=== PATIENT | male | born 1940 | race Caucasian/White ===

== ENCOUNTER 2016-10-19 14:05 | Observation (INO) | payer OTHER ==
[2016-10-19 14:18] LABS: % IMMATURE GRANULYOCYTES 0.9 % (0.0-1.1); ABSOLUTE IMMATURE GRANULOCYTES 0.09 10^3/uL (0.00-0.10); ADD DIFF? NO; ADD MORPH? NO; ADD SCAN? NO; ATYPICAL LYMPHOCYTE FLAG 0 (0-99); FRAGMENT RBC FLAG 0 (0-99); HEMATOCRIT 44.5 % (40.0-51.0); HEMOGLOBIN 15.3 g/dL (13.7-17.5); LEFT SHIFT FLG 0 (0-99); LIPEMIA HEMOLYSIS FLAG 90 (0-99); MEAN CELL HEMOGLOBIN 30.5 pg (27.9-34.1); MEAN CELL HEMOGLOBIN CONCENTR. 34.4 g/dL (32.4-36.7); MEAN CELL VOLUME 88.6 fL (81.5-99.8); MEAN PLATELET VOLUME 9.8 fL (8.7-11.7); PLATELET CLUMPS FLAG 10 (0-99); PLATELET COUNT 295 10^3/uL (150-400); RED BLOOD CELL COUNT 5.02 10^6/uL (4.40-6.38); RED CELL DISTRIBUTION WIDTH 13.1 % (11.5-15.2)
--- NOTE | 2016-10-19 14:19 | EDPHY ---
H & P HPI/ROS: HPI CHIEF COMPLAINT: Possible stroke alert versus seizure. HISTORY OF PRESENT ILLNESS: This patient is a 76-year-old male, significant past medical history for hypertension, history and review of systems somewhat limited due to clinical scenario. Patient presents emergency room as possible stroke alert by EMS. Per EMS they were called to a local restaurant in [facility] where the patient may have been witnessed to have a seizure. Unclear. Upon arrival and evaluation by EMS he was initially unresponsive or minimally responsive to pain. This has since improved in EMS transport. He had a negative stroke scale for EMS in route. Upon arrival to the emergency room the patient follows commands and answers questions. No focal neuro deficit appreciated on exam. However noted to be very hypertensive. When asked the year he repeats over and over again a religion prayer. There is no family here at this time to provide additional information specifically the daughter who is an EMT told EMS that she may witness the seizure. Unclear exactly the events at this time. Past Medical History: Hypertension, hyperlipidemia Past Surgical History: Unknown at this time Social History: Unknown at this time Family History: Noncontributory ROS REVIEW OF SYSTEMS: A comprehensive 10 point review of systems is otherwise negative aside from elements mentioned in the history of present illness. Exam Constitutional alert, follows commands triage nursing summary reviewed, vital signs reviewed, awake/alert. Eyes normal conjunctivae and sclera, EOMI, PERRLA. HENT normal inspection, atraumatic, moist mucus membranes, no epistaxis, neck supple/ no meningismus, no raccoon eyes. Respiratory clear to auscultation bilaterally, normal breath sounds, no respiratory distress, no wheezing. Cardiovascular rate normal, regular rhythm, no murmur, no edema, distal pulses normal. Gastrointestinal soft, non-tender, no rebound, no guarding, normal bowel sounds, no distension, no pulsatile mass. Genitourinary no CVA tenderness. Musculoskeletal no midline vertebral tenderness, full range of motion, no calf swelling, no tenderness of extremities, no meningismus, good pulses, neurovascularly intact. Neurologic awake, alert and oriented x 3, AAOx3, moves all 4 extremities equally, motor intact, sensory intact, CN II-XII intact, normal cerebellar, normal vision, normal speech. No focal neuro deficit on exam. Psychiatric normal mood/affect. Heme/Lymph/Immune no lymphadenopathy. Differential Diagnosis: Includes but is not limited to in a particular order stroke, head bleed, seizure, ACS, electrolyte disturbance, hypertensive urgency , hypertensive emergency, PRESS Medical Decision Making: Will proceed with a stroke alert as the patient had change in mental status prior to arrival. After patient returned from CT will re-evaluate him. 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 The results of the study are negative for anything acute specifically no bleed or stroke. The study was read by Dr. Adan I viewed the images myself on the PACS system EKG interpretation by me on record in [email or web address] system. Impression time of EKG 1429, sinus rhythm rate of 60, very subtle ST depression in lead 2 3 and AVF. Otherwise unremarkable EKG. 1432: Daughter has arrived and gives me additional history. She states that they were seated at a restaurant he stared off into space for brief period of time and then went unresponsive slumped over. No seizure activity appreciated. And went over EMS arrived he was still minimally responsive. She does report that there was a brief episode that he was completely unresponsive. No CPR was given. Did not turn blue. No seizure activity. At this time patient has returned to baseline. His neurological exam is unremarkable. Daughter at bedside agrees that he appears normal. 1435: I did speak with [facility] Dr. Hunter, discussed the case with her. Unlikely to be a tPA candidate given resolution of symptoms. And normal neurological exam here. However Dr. Hunter will see and evaluate. 1435: NIH stroke scale upon arrival: 0. 1446: This patient is seen evaluated by Dr. HUNTER with [facility]. Not a tPA candidate. Does recommend EEG for possible seizure also MRI brain with and without for press. Did evaluate the patient understands the patient is hypertensive she does not want to lower his blood pressure this time until after MRI brain. Plan is for admission to the hospital Neurology to consult MRI brain with and without. Varun blood pressure stable alone at this time. 1513: Spoke with Obed Rogers, with Neurology they will plan on seeing the patient tomorrow. MRI has been ordered. It is noted this time blood pressure has improved on its own from 200-170 systolic. Patient is mentating appropriately. Neurological exam is unremarkable. 1539: I spoke with Dr. Keene who agrees to admit this patient. MRIs are pending at this time. Blood pressure improved on its own down to 170s. Differential still syncope versus press versus hypertensive urgency versus hypertensive emergency versus seizure versus stroke. Unlikely to be stroke. Not a tPA candidate. Patient be admitted to PCU in case this was a cardiac arrhythmia that caused syncope. At this time patient re-evaluated doing well, no focal neuro deficit on exam family at bedside agrees that he looks well and is doing well. Still unclear etiology this time of what happened. Source: Patient, EMS Constitutional: Initial Vital Signs O2 Sat (%) 93 10/19/16 14:13 O2 Delivery Mode Room Air O2 (L/minute) 2 Allergies/Adverse Reactions: No Known Allergies Allergy (Verified 10/19/16 15:39) Home Medications: Medication Instructions Recorded Aspirin EC [Aspirin EC 81 mg (*)] 81 mg PO DAILY 10/19/16 Atorvastatin Calcium [Lipitor 80 80 mg PO DAILY 10/19/16 mg] Irbesartan [Avapro 300 mg] 300 mg PO DAILY 10/19/16 Propranolol HCl [Inderal LA] 160 mg PO DAILY 10/19/16 Medical Decision Making - Data Points Laboratory Results: Laboratory Results 10/19/16 14:11 10/19/16 14:11 Medications Given: Discontinued Medications Aspirin Buffered (Aspirin Ec) 81 mg PO DAILY [facility] Stop: 04/18/17 08:59 Last Admin: 10/20/16 08:45 Dose: 81 mg Atorvastatin Calcium (Lipitor) 80 mg PO DAILY [facility] Stop: 04/18/17 08:59 Last Admin: 10/20/16 08:45 Dose: 80 mg Irbesartan (Avapro) 300 mg PO DAILY [facility] Stop: 04/18/17 08:59 Last Admin: 10/20/16 08:45 Dose: 300 mg Polyethylene Glycol (Miralax) 17 gm PO DAILY [facility] PRN Reason: Protocol Stop: 04/18/17 11:14 Last Admin: 10/20/16 12:55 Dose: 17 gm Propranolol HCl (Inderal La) 160 mg PO DAILY [facility] Stop: 04/18/17 08:59 Last Admin: 10/20/16 08:46 Dose: 160 mg Departure - Departure Disposition: [facility] Inpatient Acute Clinical Impression: Unresponsive episode Condition: Fair
[2016-10-19 14:28] LABS: INR 1.11 (0.83-1.16); PROTIME(PATIENT) 14.2 SEC (12.0-15.0)
[2016-10-19 14:29] LABS: APTT 27.7 SEC (23.0-38.0)
--- NOTE | 2016-10-19 14:30 | CPEKG ---
Heart Rate: 60 RR Interval: 1000 P-R Interval: 192 QRSD Interval: 90 QT Interval: 444 QTC Interval: 444 P Haslet: 50 QRS Haslet: 18 T Wave Haslet: 46 EKG Severity - NORMAL ECG - EKG Impression: SINUS RHYTHM Electronically Signed By: Tremaine Coello 19-Oct-2016 21:34:07
[2016-10-19 14:32] LABS: ANION GAP 15 mEq/L (8-16); CALCIUM 8.9 mg/dL (8.5-10.4); CARBON DIOXIDE 20 mEq/l (22-31); CHLORIDE 100 mEq/L (97-110); CREATININE 0.7 mg/dL (0.7-1.3); GLOMERULAR FILTRATION RATE > 60; GLUCOSE 130 mg/dL (70-100); POTASSIUM 4.1 mEq/L (3.5-5.2); SODIUM 135 mEq/L (134-144)
[2016-10-19 14:43] LABS: TROPONIN I < 0.012 ng/mL (0-0.034)
[2016-10-19] MEDS ORDERED: GADOBUTROL 10 ML VIAL IVP ONE (15:42)
[2016-10-19] MEDS ORDERED: ACETAMINOPHEN 325 MG TAB PO PRN (19:28)
[2016-10-19] MEDS ORDERED: ONDANSETRON DISINTEGRATING 4 MG TAB PO PRN (19:28)
[2016-10-19] MEDS ORDERED: ONDANSETRON 4 MG/2 ML VIAL IVP PRN (19:28)
--- NOTE | 2016-10-19 20:25 | GHP ---
[f rep st] HISTORY AND PHYSICAL DATE OF ADMISSION: 10/19/2016 HISTORY OF PRESENT ILLNESS: The patient is a 76-year-old gentleman with a history of hypertension, hyperlipidemia, and vascular disease, who had what sounds like a syncopal episode. He was at a restaurant with his family, and it sounds like he was eating soup and a sandwich at the same time, felt like he might throw up. He was thinking about getting up and then all of sudden, he blacked out. His family said he looked dazed. There was no convulsive activity. There was no drooling. There was no incontinence. He has not had a recent fevers or chills. He has had a headache a month ago, but none recently. He denies palpitations. He recently started irbesartan for blood pressure control. He has been on propranolol for a number of years. No fever, chills. No sputum. No cough. He drinks alcohol, it sounds like on a daily basis, but he does not feel that he is at risk for withdrawal. His last alcohol was last evening. He is not tremulous now. REVIEW OF SYSTEMS: A complete 10-point review of systems conducted and negative except as noted in HPI. PAST MEDICAL HISTORY: Hypertension, hyperlipidemia, vascular disease, sounds like he has had a large cardiac workup including an echocardiogram and nuclear stress test with his physician. He lives in [facility]. ALLERGIES: No known drug allergies. HOME MEDICATIONS: Aspirin 81, atorvastatin 80, irbesartan 300, propranolol 160. SOCIAL HISTORY: His family is present at the bedside. Occasional cigar. Alcohol as in the HPI. FAMILY HISTORY: Family present at bedside, healthy. PHYSICAL EXAMINATION: VITAL SIGNS: Presenting vitals, temp 35.9, blood pressure 221/103, pulse 69, breathing 18 times a minute, 98% on room air. His blood pressure is now 167/89. GENERAL: No acute distress. HEENT: Sclerae anicteric. Oropharynx is clear. Mucous membranes are moist. NECK: Supple without lymphadenopathy or JVD. LUNGS: Clear to auscultation bilaterally. HEART: S1, S2 without systolic murmurs. ABDOMEN: Soft, nontender, nondistended. LOWER EXTREMITIES: No edema. Calves nontender. SKIN: Without rash. NEUROLOGIC: Grossly nonfocal including sensation and strength being 5/5 bilaterally. I did not do cerebellar testing. Speech is fluid. LABORATORY DATA: White count 10.5, hematocrit 44.5, platelets are 295,000. Coags are normal. Sodium is 135, potassium 4.1, chloride 100, bicarb 20, BUN 12 , creatinine 0.7, glucose 132, troponin less than 0.012. EKG, interpreted by me, shows sinus at 60 with normal axis and intervals. There is no ST or T-wave change. Chest x-ray, interpreted by me, shows no acute cardiopulmonary disease. Noncontrast head CT shows mild atrophy. No acute hemorrhage, hydrocephalus, or mass effect, cerebrovascular atherosclerosis. [id number] sinusitis. Brain MRI shows no mass. No acute CVA. No blood. 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 I have discussed the case with the emergency department physician. ASSESSMENT/PLAN: A 76-year-old gentleman presents with syncope versus seizure. 1. Syncope versus seizure. I suspect this is vasovagal syncope given the large negative work up. Alternative diagnosis includes kash or tachy arrhythmias. Certainly his resting bradycardia with a heart rate in the 50s and his large dose of propranolol as well as new dose of irbesartan may have set him up for a vasovagal episode. I have a low suspicion for seizures given that there is no reason. 2. Hypertension. Will continue his medications. 3. Prophylaxis. Pharmacologic prophylaxis indicated in the hospital longer than 24 hours; I suspect he will not be. 4. Question seizures. Neurology will see him, possibly think about EEG. For the time being, we will hold off on it. 5. Question arrhythmia. The patient is followed on telemetry. /[id number]/MODL MTDD
[2016-10-20 04:18] VITALS: TEMP 97.6
[2016-10-20 04:49] LABS: % IMMATURE GRANULYOCYTES 0.7 % (0.0-1.1); ABSOLUTE IMMATURE GRANULOCYTES 0.07 10^3/uL (0.00-0.10); ADD DIFF? NO; ADD MORPH? NO; ADD SCAN? NO; ATYPICAL LYMPHOCYTE FLAG 0 (0-99); FRAGMENT RBC FLAG 0 (0-99); LEFT SHIFT FLG 0 (0-99); LIPEMIA HEMOLYSIS FLAG 90 (0-99); MEAN CELL HEMOGLOBIN 30.3 pg (27.9-34.1); MEAN CELL HEMOGLOBIN CONCENTR. 34.1 g/dL (32.4-36.7); MEAN CELL VOLUME 88.7 fL (81.5-99.8); MEAN PLATELET VOLUME 9.9 fL (8.7-11.7); PLATELET CLUMPS FLAG 0 (0-99); PLATELET COUNT 229 10^3/uL (150-400); RED BLOOD CELL COUNT 4.62 10^6/uL (4.40-6.38); RED CELL DISTRIBUTION WIDTH 13.3 % (11.5-15.2)
[2016-10-20 05:04] LABS: ANION GAP 9 mEq/L (8-16); CARBON DIOXIDE 26 mEq/l (22-31); CHLORIDE 101 mEq/L (97-110); CREATININE 0.8 mg/dL (0.7-1.3); GLOMERULAR FILTRATION RATE > 60; GLUCOSE 91 mg/dL (70-100); POTASSIUM 3.9 mEq/L (3.5-5.2); SODIUM 136 mEq/L (134-144)
[2016-10-20 05:15] LABS: TROPONIN I < 0.012 ng/mL (0-0.034)
--- NOTE | 2016-10-20 08:27 | CPEKG ---
Heart Rate: 70 RR Interval: 857 P-R Interval: 128 QRSD Interval: 84 QT Interval: 396 QTC Interval: 428 P Gwynn: 20 QRS Gwynn: 31 T Wave Gwynn: 40 EKG Severity - NORMAL ECG - EKG Impression: SINUS RHYTHM Electronically Signed By: Angélica Smith 20-Oct-2016 13:47:43
[2016-10-20 08:30] VITALS: RESP 14; O2SAT 96
[2016-10-20 08:49] VITALS: BP 181/89; PULSE 56
[2016-10-20] MEDS ORDERED: ATORVASTATIN CALCIUM 40 MG TAB PO SCH (09:00)
[2016-10-20] MEDS ORDERED: IRBESARTAN 150 MG TAB PO SCH (09:00)
[2016-10-20] MEDS ORDERED: PROPRANOLOL SR 80 MG CAP PO SCH (09:00)
[2016-10-20] MEDS ORDERED: ASPIRIN EC 81 MG TAB PO SCH (09:00)
[2016-10-20] MEDS ORDERED: MAGNESIUM HYDROXIDE 30 ML UDCUP PO PRN (11:11)
[2016-10-20] MEDS ORDERED: BISACODYL 10 MG SUPP PR PRN (11:11)
[2016-10-20] MEDS ORDERED: LACTULOSE 20 GM/30 ML UDCUP PO PRN (11:11)
[2016-10-20] MEDS ORDERED: POLYETHYLENE GLYCOL 3350 17 GM PKT PO SCH (11:15)
--- NOTE | 2016-10-20 11:16 | HOSPPROG ---
Hospitalist Progress Note Assessment/Plan: Patient is a 76-year-old gentleman with a history of hypertension, hyperlipidemia who had likely a syncopal episode. He was eating at a restaurant and felt nauseated then he blacked out today is my 1st encounter with the patient. Chart reviewed. 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 Subjective: Christiano has no complaints. Objective: Vital Signs Temp Pulse Resp BP Pulse Ox 36.4 C 56 L 14 181/89 H 96 10/20/16 04:00 10/20/16 08:46 10/20/16 08:00 10/20/16 08:46 10/20/16 08:00 Laboratory Results 10/20/16 04:16 10/20/16 04:16 10/19/16 10/20/16 10/21/16 05:59 05:59 05:59 Intake Total 750 Output Total 600 Balance 150 PT 14.2 SEC (12.0-15.0) 10/19/16 14:11 INR 1.11 (0.83-1.16) 10/19/16 14:11 - Physical Exam Constitutional: no apparent distress, appears nourished, not in pain Eyes: PERRL Ears, Nose, Mouth, Throat: hearing normal Cardiovascular: regular rate and rhythym, no murmur, rub, or gallop, bradycardia Respiratory: no respiratory distress Skin: warm, normal color Neurologic: AAOx3 Psychiatric: interacting appropriately, not anxious, not encephalopathic ICD10 Worksheet Patient Problems: Problems Problem Status Onset Unresponsive episode Acute
--- NOTE | 2016-10-20 15:46 | ECHO ---
[id number] + + [address] : : [place] [address] : : [phone] + + Adult Echocardiographic Report + ---------+ :Name: GREGORY KANG JStudy Date: 10/20/2016 11:28 AM : : Hospital Admission Number: [id number] Paola banks: 342: :: 1940 Gender: Male Height: 70 i n : :Age: 76 yrs Race: WH Weight: 199 lb : :Reason For Study: Eval LV Fx : : BSA: 2.1 met ers2 : :History: Syncope : + ---------+ MMode/2D Measurements \T\ Calculations IVSd: 1.00 cm LVIDd: 5.7 cm FS: 36.5 % Ao root diam: 3.5 cm LVPWd: 1.0 cm LVIDs: 3.6 cm EDV(Teich): 163.2 ml ACS: 1.7 cm ESV(Teich): 56.2 ml LA dimension: 5.0 cm EF(Teich): 65.5 % Normal Measurement Values: + + :LVIDd (3.5-5.7cm) IVSd (0.6-1.1cm) LVPWd (0.6-1.1cm) Aortic Root (2.0-3.7cm)Left Atrium (1.5-4.0cm): :LV Vol(d) (76-115ml) LV Vol(s) (29-48ml) Ejec Fraction (50-65%)PV Gio (0.6- 1.2m/s) TV Gio (0.4-1.0m/s) : :MV E Gio (0.8-1.0m/s)MV A Gio (0.3-1.0m/s)LVOT Gio (0.7-1.2m/s) Asc Ao Gio ( 0.9-1.8m/s) : + + Doppler Measurements \T\ Calculations MV E max gio: Ao V2 max: AI max gio: LV V1 max: 45.9 cm/sec 141.2 cm/sec 414.3 cm/sec 94.3 cm/sec MV A max gio: Ao max P.0 mmHgAI max P.7 mmHg LV V1 max P.9 cm/sec AI dec slope: 3.6 mmHg MV E/A: 0.54 178.8 cm/sec2 AI P1/2t: 678.8 msec PA V2 max: PI end-d gio: TR max gio: 82.8 cm/sec 105.9 cm/sec 289.1 cm/sec PA max PG: TR max P.4 mmHg 2.7 mmHg RAP systole: 5.0 mmHg RVSP(TR): 38.4 mmHg Left Ventricle The left ventricle is normal in size. There is normal left ventricular wall thickness. The left ventricular ejection fraction is normal. There is Doppler evidence for diastolic dysfunction. Ejection Fraction = 66%. The left ventricular wall motion is normal. Right Ventricle The right ventricle is normal in size and function. Atria The left atrial size is normal. Right atrial size is normal. Mitral Valve The mitral valve leaflets appear thickened, but open well. There is trace mitral regurgitation. Tricuspid Valve Normal tricuspid valve. There is trace to mild tricuspid regurgitation. Right ventricular systolic pressure is normal. Aortic Valve There is mild to moderate aortic valve calcification. The aortic valve is trileaflet. There is no aortic stenosis. Mild aortic regurgitation. Pulmonic Valve The pulmonic valve is not well visualized. There is no pulmonic valvular regurgitation. Great Vessels The aortic root is normal size. Pericardium/Pleural There is no pericardial effusion. Conclusion A complete two-dimensional transthoracic echocardiogram was performed (2D, M-mode, Doppler and color flow Doppler). (1) Left ventricular systolic ejection fraction was normal (65-70%) - normal wall motion (2) No left ventricular hypertrophy (3) Diastolic dysfunction was present (4) Normal right ventricular size and function (5) Grossly normal atrial dimensions (6) Physiologic mitral regurgitation (7) Trileaflet aortic valve with mild to moderate sclerosis, no stenosis, and mild insufficiency (8) Trace/mild tricusid regurgitation - RVSP was estimated to be within normal limits (9) Poor visualization of the pulmonic valve (10) No comparison echocardiograms Final Reading Physician: Evaristo Felix signed on 10/20/2016 03:45 PM Ordering Physician: Kalee Carolina Performed By: Braeden Greene, CS
--- NOTE | 2016-10-20 16:43 | GDS ---
[f rep st] DISCHARGE SUMMARY DISCHARGE DIAGNOSES: 1. Hypertensive crisis, likely the etiology of his acute encephalopathy, concern for syncope. 2. Possible seizure. 3. Uncontrolled hypertension. CONSULTATIONS: Dr. Obed Morales. HISTORY OF PRESENT ILLNESS: Briefly, the patient is a 76-year-old male with a history of hypertension, hyperlipidemia, vascular disease. He was eating at a restaurant, felt like he might have a bout of emesis and all of a sudden he blacked out. There was no drooling or any type of incontinence. Per his daughter, he slumped in the chair and just stared. He was breathing. This lasted for approximately 30 minute. During his stay, he had a head CT performed. This showed mild atrophy. He is no acute hemorrhage, hydrocephalus or mass effect. He has cerebrovascular atherosclerosis. He has no definite acute infarct. Subsequently, a brain MRI was performed. This showed moderate amounts of specific hyperintense T2/FLAIR signal abnormalities in the periventricular and subcortical white matter, bilateral frontal and parietal lobes. Differential diagnosis includes microvascular ischemia disease post infectious/postinflammatory sequelae, atypical demyelinating disease or migraine -related sequelae. He has mild age-related cerebral atrophy. In addition, the patient was complaining of some neck pain. A carotid Doppler ultrasound was performed. This showed mild bilateral carotid bulb plaque. No flow-limiting stenosis or occlusion. He was seen and evaluated by Dr. Obed Morales this afternoon. Dr. Morales believes that his symptoms were caused by uncontrolled hypertension/hypertensive crisis or possibly a seizure. He will follow up with Dr. Morales in the outpatient setting. In addition, he has an appointment with his computer systems security administrator. He needs better blood pressure control. HOSPITAL COURSE: Per problem: 1. Hypertensive crisis. This is likely the cause of his acute encephalopathy. His blood pressure was in the 200s on transport. He also has some bradycardia during his stay. He is on propranolol. Blood pressure is improved with propranolol and Avapro but still remained somewhat elevated. He will follow up with his computer systems security administrator. 2. Possible seizure. He will follow up with Dr. Obed Morales this week and get an EEG. 3. Hypertension. It was uncontrolled earlier today and improved when he took the Avapro and the propranolol. PENDING LABS AND TESTS: None. CONDITION ON DISCHARGE: Stable. Blood pressure is 160/70, heart rate 56, O2 saturating on room air 96%, temperature is 36.4 Celsius. MEDICATIONS AT DISCHARGE: Please see the EMR. DISCHARGE INSTRUCTIONS: 1. To follow up with Dr. Obed Morales this week. 2. If he does have any stroke-like symptoms, return to the ER. 3. To follow up with his cardiology as he has planned on Sunday. He needs tighter control of his blood pressure. /[id number]/MODL MTDD
--- NOTE | 2016-10-20 19:23 | GCON ---
[f rep st] CONSULTATION DATE OF CONSULTATION: 10/20/2016 REFERRING PHYSICIAN: Jer Keene MD PHYSICIAN BILLING INFORMATION: 70 total minutes on the floor time today, reviewing tests and notes from this hospitalization and in direct counseling with the patient and his family regarding the differential diagnosis and treatment plan. HISTORY OF PRESENT ILLNESS: This patient is a very pleasant 76-year-old gentleman, who developed hypertension around 1975, which was quite severe, and has been treated medically since that time. More recently, his blood pressure has been creeping up on him, as he does check it at home once or twice daily. He typically had in the 120s for many years, and it has gone up to the 160s on a daily basis. He is not sure how long that has been going on. He is not clear if it relates to any certain medication changes in terms of his antihypertensive medications. The patient was at a restaurant yesterday and was chewing on some food when he suddenly felt nauseous, as if he was going to vomit. In his mind, he thought he was going to stand up and walk to the restroom to vomit, but he never actually got up from the seat. The next thing that happened was he lost consciousness and slumped forward, as observed by his daughter, who is an EMT. He was limp without any convulsive activity. No tongue biting or incontinence. He was then laid slowly to the ground. There may have been some stiffness in 1 of his extremities; not clear. In any case, his eyes were open, and he remained unresponsive for around 30 minutes total with his eyes open. When he was brought into the emergency department, he was clearly confused and was repeating some Advent prayers when asked questions by the emergency physician. The patient is amnestic for this whole period of time. The last thing he remembers was feeling nauseous with food in his mouth at the restaurant , and the next thing he remembers is being in the hospital room here on [address]. He does not recall the emergency room at this point. There was no witnessed convulsive activity, tongue biting, or incontinence, as noted above. However, his blood pressure was 220/100s in the ambulance, apparently, and it remained severely elevated here in the emergency department. The 1st recording we have is 221/103, then 199/91, and so forth, until we got control with medications. The patient was seen by [facility] in the emergency room, who recommended blood pressure control, admission, MRI brain. He was not a tPA candidate, based on his symptoms at that time, which were resolving. MRI showed significant T2 hyperintensities throughout his bilateral hemispheres in the white matter, without any acute infarct or masses. The MRI findings are consistent with his many years of hypertension. He had an echocardiogram with an EF of 66% without any obvious intracardiac thrombus. Carotid ultrasound shows no significant stenosis. For past medical history, social history, family history, please see the admitting H and P by Dr. Keene. REVIEW OF SYSTEMS: A 10-point review was done. Only pertinent as per the HPI, outside of some recent headaches that may be related to his hypertension. PHYSICAL EXAMINATION: VITAL SIGNS: His blood pressure is now 150s over 90s. Pulse is normal and regular at 60 beats per minute. Respirations 14. Afebrile at 36.4. GENERAL: No acute distress. Very pleasant. NEUROLOGIC: Higher mental function: He is awake and alert. Has no aphasia. Cranial nerve exam normal, 2 through 7 and 12. Motor exam has normal strength, tone, reflexes throughout. Sensory normal to light touch in all 4 extremities. Coordination is normal in upper and lower extremities. IMPRESSION AND PLAN: 1. Encephalopathy, resolved. The patient's acute encephalopathy may be related to a hypertensive emergency causing brief syncope followed by confusion. The degree of amnesia and length of unresponsiveness would make this atypical for a straightforward fainting or vasovagal spell. Other possibilities include a focal seizure. He does have significant microvascular changes throughout his hemispheres, which potentially could be a seizure focus. An atypical vasovagal attack with prolonged postsyncopal confusion is possible as well. I do not think he has had any acute neurovascular event (stroke or TIA), as evidenced by his history, physical and negative neurovascular testing. I recommend he goes on [address] of [address] restrictions and seizure precautions. I will see him as an outpatient, at which time, we will perform an extended EEG and make further recommendations accordingly. Lastly, we did discuss his degree of microvascular changes and some short-term memory symptoms that have been going on in the background. We certainly can address this as an outpatient as well, and offer him a medication such as Aricept, if he wishes. 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 He is on a daily aspirin, and will continue this indefinitely. No further recommendations. He will likely be discharged later today. Thank you for this consultation. /[id number]/MODL ADITI
[2016-10-20] MEDS ORDERED: SENNOSIDES/DOCUSATE SODIUM TAB PO SCH (21:00)
== END 2016-10-20 16:47 | disposition home or self-care (01) ==
LOC: INTOOBSV 15:38 → F3N 16:38
PROVIDERS: ADMIT Internal Medicine; ATTEND Hospitalist
DX: I16.9 Hypertensive crisis, unspecified (principal); R55 Syncope and collapse; G93.40 Encephalopathy, unspecified; I10 Essential (primary) hypertension
CPT/HCPCS: 70450; 70553; 71010; 93005; 93306; 93880; 97161; A9585; G0378; G8978; G8979; G8980; 82947-QW

== ENCOUNTER → 2016-11-03 | Outpatient (CLI) | payer OTHER ==
--- NOTE | 2016-11-03 12:57 | CPEEG ---
[f rep st] ELECTROENCEPHALOGRAM DATE OF STUDY: 11/03/2016 INTERPRETATION: This short-term video EEG monitoring session is normal. There were no potentially epileptogenic abnormalities present in the awake or sleep recordings. During the video EEG monitori ng session, the patient did not have any clinical events. REPORT: This short-term video EEG monitoring session contains 9 Hz alpha activity in the posterior head regions. There was no abnormal activation at rest, photic stimulation, or hyperventilation. T he patient intermittently became drowsy and fell asleep during the study. There was no abnormal act ivation during drowsiness, sleep, or during times of arousal. The patient did not have any clinical events during the video EEG monitoring session. /[id number]/MODL
== END ==
LOC: FCPNEURO 08:40
PROVIDERS: ATTEND Psychiatry & Neurology Neurology
DX: R55 Syncope and collapse (principal)